=== PATIENT | male | born 1960 | race Caucasian/White ===

== ENCOUNTER 2018-05-03 13:18 | Emergency (ER) | payer MEDICAID ==
[~2018-05-03] VITALS: Ht 172.7 cm; Wt 88.3 kg
[~2018-05-03 13:18] MED LIST: NAPR-56 PO; NO HOME MEDS; PENI250T2 PO
[2018-05-03 13:29] VITALS: BP 156/91
[2018-05-03] MEDS ORDERED: ONDA4TAB9 PO (14:00)
[2018-05-03] MEDS ORDERED: HYDR-4353 PO (14:00)
[2018-05-03] MEDS ORDERED: METR500T PO (14:00)
[2018-05-03] MEDS ORDERED: acetaminophen 325mg tablet PO ONE (14:10)
== END 2018-05-03 14:15 | disposition home or self-care (01) ==
LOC: ER 13:19
DX: K04.7 Periapical abscess without sinus (principal); K04.1 Necrosis of pulp; F12.90 Cannabis use, unspecified, uncomplicated; G89.29 Other chronic pain; Z79.899 Other long term (current) drug therapy
CPT/HCPCS: 99283

== ENCOUNTER 2020-05-18 15:42 | Emergency (ER) | payer MEDICAID ==
[~2020-05-18] VITALS: Ht 172.7 cm; Wt 84.1 kg
[~2020-05-18 15:42] MED LIST changes: -NAPR-56 PO; -PENI250T2 PO
[2020-05-18 16:11] LABS: BASOPHILS # (AUTO) 0.1 X10'3 (0-0.2); BASOPHILS % (AUTO) 0.7 % (0-1); EOSINOPHILS # (AUTO) 0.3 X10'3 (0-0.9); EOSINOPHILS % (AUTO) 2.8 % (0-6); HEMATOCRIT 42.9 % (42.0-52.0); HEMOGLOBIN 14.7 g/dl (14.0-17.9); LYMPHOCYTES # (AUTO) 2.6 X10'3 (1.1-4.8); LYMPHOCYTES % (AUTO) 25.1 % (21-51); MEAN CORPUSCULAR HEMOGLOBIN 31.2 PG (27.0-31.0); MEAN CORPUSCULAR HGB CONC 34.3 g/dL (33.0-36.5); MEAN CORPUSCULAR VOLUME 91.1 FL (78-98); MEAN PLATELET VOLUME 5.8 FL (7.4-10.4); MONOCYTES # (AUTO) 0.5 X10'3 (0-0.9); MONOCYTES % (AUTO) 4.9 % (2-12); NEUTROPHILS # (AUTO) 6.8 X10'3 (1.8-7.7); NEUTROPHILS % (AUTO) 66.5 % (42-75); PLATELET COUNT 441 X10'3 (140-440); RED BLOOD COUNT 4.71 X10'6 (4.70-6.10); WHITE BLOOD COUNT 10.2 X10'3 (4.5-11.0)
[2020-05-18 16:25] LABS: ALANINE AMINOTRANSFERASE 46 U/L (12-78); ALBUMIN 3.3 G/DL (3.4-5.0); ALBUMIN/GLOBULIN RATIO 0.8 (1.1-1.5); ALKALINE PHOSPHATASE 111 IU/L (46-116); ANION GAP 9 (8-16); ASPARTATE AMINO TRANSFERASE 23 U/L (10-37); BILIRUBIN,TOTAL 0.4 MG/DL (0.1-1.0); BLOOD UREA NITROGEN 14 MG/DL (7-18); BUN/CREATININE RATIO 14.1 (5.4-32.0); CALCIUM 8.5 MG/DL (8.5-10.1); CHLORIDE 100 MMOL/L (99-107); CREATININE 0.99 MG/DL (0.60-1.10); GLUCOSE 134 MG/DL (70-104); POTASSIUM 3.8 MMOL/L (3.5-5.1); SODIUM 138 MMOL/L (135-145); TOTAL CARBON DIOXIDE 28.6 MMOL/L (24-32); TOTAL PROTEIN 7.5 G/DL (6.4-8.2); eGFR 77 ML/MIN
[2020-05-18] MEDS ORDERED: meclizine 12.5mg tablet PO ONE (16:30)
--- NOTE | 2020-05-18 16:47 | NUR ---
Patient ambulates 100 feet without any assistance with a steady gait. He denies dizziness at this time. Lavell Donis updated.
[2020-05-18 17:03] VITALS: BP 112/70
== END 2020-05-18 17:04 | disposition home or self-care (01) ==
LOC: ER 15:43
DX: R42 Dizziness and giddiness (principal); G89.29 Other chronic pain; F12.10 Cannabis abuse, uncomplicated
CPT/HCPCS: 36415; 71045; 80053; 84484; 85025; 93005; 99285; J8597

== ENCOUNTER 2021-09-22 22:26 | Emergency (ER) | payer MEDICAID ==
[~2021-09-22] VITALS: Ht 167.6 cm; Wt 84.1 kg
--- NOTE | 2021-09-22 22:53 | NUR ---
AWARE OF PT'S SOB. PT ROOMED IN BED 1. ORDERS PLACED. EKG COMPLETED.
[2021-09-22 23:14] LABS: MEAN PLATELET VOLUME 6.1 FL (7.4-10.4); WHITE BLOOD COUNT 6.1 X10'3 (4.5-11.0)
[2021-09-22 23:16] LABS: BASOPHILS # (AUTO) 0.1 X10'3 (0-0.2); EOSINOPHILS # (AUTO) 0.1 X10'3 (0-0.9); EOSINOPHILS % (AUTO) 2.3 % (0-6); HEMOGLOBIN 14.8 g/dl (14.0-17.9); LYMPHOCYTES # (AUTO) 2.9 X10'3 (1.1-4.8); LYMPHOCYTES % (AUTO) 46.7 % (21-51); MEAN CORPUSCULAR HEMOGLOBIN 32.8 PG (27.0-31.0); MEAN CORPUSCULAR HGB CONC 34.4 g/dL (33.0-36.5); MEAN CORPUSCULAR VOLUME 95.3 FL (78-98); MONOCYTES # (AUTO) 0.4 X10'3 (0-0.9); MONOCYTES % (AUTO) 6.1 % (2-12); NEUTROPHILS # (AUTO) 2.7 X10'3 (1.8-7.7); NEUTROPHILS % (AUTO) 43.9 % (42-75); PLATELET COUNT 258 X10'3 (140-440); RED BLOOD COUNT 4.51 X10'6 (4.70-6.10); RED CELL DISTRIBUTION WIDTH 13.9 % (11.5-14.5)
[2021-09-22 23:25] LABS: ALANINE AMINOTRANSFERASE 41 U/L (12-78); ALBUMIN 3.8 G/DL (3.4-5.0); ALBUMIN/GLOBULIN RATIO 1.1 (1.1-1.5); ALKALINE PHOSPHATASE 97 IU/L (46-116); ANION GAP 12 (8-16); ASPARTATE AMINO TRANSFERASE 31 U/L (10-37); BILIRUBIN,TOTAL 0.4 MG/DL (0.1-1.0); BLOOD UREA NITROGEN 17 MG/DL (7-18); BUN/CREATININE RATIO 19.1 (5.4-32.0); CALCIUM 8.5 MG/DL (8.5-10.1); CHLORIDE 105 MMOL/L (99-107); CREATININE 0.89 MG/DL (0.60-1.10); GLUCOSE 111 MG/DL (70-104); POTASSIUM 3.7 MMOL/L (3.5-5.1); SODIUM 140 MMOL/L (135-145); TOTAL CARBON DIOXIDE 23.5 MMOL/L (24-32); TOTAL PROTEIN 7.2 G/DL (6.4-8.2); eGFR 87 ML/MIN
[2021-09-23 01:27] LABS: D-DIMER 0.61 MG/L FEU (0-0.50)
--- NOTE | 2021-09-23 01:40 | NUR ---
Pt pink, no acute/resp distress. PIV site c/d/i s complication or adverse rxn. Bed in lowest position, wheels locked, call cook in reach. Will continue to monitor pt for acute changes and needs.
[2021-09-23] MEDS ORDERED: iohexol 350MG/ML 100ml bottle IV ONE (02:03)
--- NOTE | 2021-09-23 02:13 | NUR ---
Pt to radiology. Cruger, no acute/resp distress. PIV site c/d/i s complication.
[2021-09-23 05:17] LABS: ABG OXYGEN SATURATION 95.7 % (94-97); ABG PCO2 (T) 30.6 mmHg (35.0-48.0); ALLEN'S TEST POSITIVE; FCOHb 0.5 % (0.0-3.9); FMetHb 0.2 % (0.0-1.5); PATIENT TEMPERATURE 36.4
[2021-09-23 05:35] VITALS: BP 149/83
== END 2021-09-23 05:36 | disposition home or self-care (01) ==
LOC: ER 22:27
DX: R06.02 Shortness of breath (principal); Z20.822 Contact with and (suspected) exposure to COVID-19; G89.29 Other chronic pain; F12.90 Cannabis use, unspecified, uncomplicated; Z72.89 Other problems related to lifestyle; Z98.890 Other specified postprocedural states
CPT/HCPCS: 36415; 36600; 71045; 71275; 80053; 82803; 83605; 83880; 84484; 85018; 85025; 85379; 87040; 87635; 93005; 99285; C9803; Q9967

== ENCOUNTER 2021-10-22 22:02 | Emergency (ER) | payer MEDICAID ==
[~2021-10-22] VITALS: Ht 167.6 cm; Wt 86.4 kg
[2021-10-22 22:14] VITALS: BP 131/91
== END 2021-10-23 01:19 | disposition left against medical advice (07) ==
LOC: ER 22:03
DX: T25.221A Burn of second degree of right foot, initial encounter (principal)
CPT/HCPCS: 73610; 73630; 99284

== ENCOUNTER 2022-11-29 05:15 | Emergency (ER) | payer MEDICAID ==
[~2022-11-29] VITALS: Ht 167.6 cm; Wt 86.4 kg
[2022-11-29 05:21] VITALS: BP 142/89
[2022-11-29] MEDS ORDERED: chlordiazePOXIDE 25mg capsule PO ONE (06:30)
[2022-11-29 07:53] LABS: BASOPHILS % (AUTO) 0.6 % (0-1); EOSINOPHILS % (AUTO) 0.4 % (0-6); HEMATOCRIT 41.9 % (42.0-52.0); HEMOGLOBIN 14.4 g/dl (14.0-17.9); LYMPHOCYTES # (AUTO) 0.8 X10'3 (1.1-4.8); LYMPHOCYTES % (AUTO) 15.2 % (21-51); MEAN CORPUSCULAR HEMOGLOBIN 34.8 PG (27.0-31.0); MEAN CORPUSCULAR HGB CONC 34.5 g/dL (33.0-36.5); MEAN CORPUSCULAR VOLUME 100.8 FL (78-98); MEAN PLATELET VOLUME 6.5 FL (7.4-10.4); MONOCYTES # (AUTO) 0.5 X10'3 (0-0.9); MONOCYTES % (AUTO) 9.6 % (2-12); NEUTROPHILS # (AUTO) 3.8 X10'3 (1.8-7.7); NEUTROPHILS % (AUTO) 74.2 % (42-75); PLATELET COUNT 156 X10'3 (140-440); RED BLOOD COUNT 4.16 X10'6 (4.70-6.10); WHITE BLOOD COUNT 5.1 X10'3 (4.5-11.0)
[2022-11-29 08:04] LABS: ALANINE AMINOTRANSFERASE 76 U/L (12-78); ALBUMIN 3.9 G/DL (3.4-5.0); ALBUMIN/GLOBULIN RATIO 1.2 (1.1-1.5); ALKALINE PHOSPHATASE 69 IU/L (46-116); ANION GAP 14 (8-16); ASPARTATE AMINO TRANSFERASE 135 U/L (10-37); BILIRUBIN,TOTAL 1.4 MG/DL (0.1-1.0); BLOOD UREA NITROGEN 12 MG/DL (7-18); BUN/CREATININE RATIO 15.8 (10.0-20.0); CALCIUM 9.4 MG/DL (8.5-10.1); CHLORIDE 104 MMOL/L (99-107); CREATININE 0.76 MG/DL (0.60-1.10); ETHANOL < 0.010 GM/DL (0.0-0.010); GLUCOSE 124 MG/DL (70-104); POTASSIUM 3.9 MMOL/L (3.5-5.1); SODIUM 143 MMOL/L (135-145); TOTAL CARBON DIOXIDE 25.4 MMOL/L (24-32); TOTAL PROTEIN 7.1 G/DL (6.4-8.2); eGFR > 90 ML/MIN
== END 2022-11-29 08:59 | disposition home or self-care (01) ==
LOC: ER 05:19
DX: F10.930 Alcohol use, unspecified with withdrawal, uncomplicated (principal); W19.XXXA Unspecified fall, initial encounter; Y93.9 Activity, unspecified; Y92.89 Other specified places as the place of occurrence of the external cause; Y99.8 Other external cause status; Y90.9 Presence of alcohol in blood, level not specified
CPT/HCPCS: 36415; 70450; 80053; 80320; 84484; 85025; 99284

== ENCOUNTER 2023-08-15 15:17 | Emergency (ER) | payer MEDICAID ==
[~2023-08-15] VITALS: Ht 170.2 cm; Wt 90.8 kg
[2023-08-15 15:27] VITALS: TEMP 97.8
[2023-08-15 16:56] LABS: BILIRUBIN,URINE SMALL (Neg); CLARITY,URINE CLEAR (Clear); COLOR,URINE YELLOW (Yellow); GLUCOSE, URINE NEGATIVE (Neg); KETONES,URINE 15 mg/dl (Neg); LEUKOCYTE ESTERASE ,URINE NEGATIVE (Neg); NITRITES, URINE NEGATIVE (Neg); OCCULT BLOOD,URINE TRACE-LYSED (Neg); PROTEIN,URINE NEGATIVE (Neg)
[2023-08-15 17:06] LABS: UA COLLECTION TYPE NON-SPECIFIED
[2023-08-15 17:07] LABS: HYALINE CASTS 0-3 /LPF (NEGATIVE); MUCUS STRANDS FEW /LPF (Neg); SQUAMOUS EPITHELIAL CELL,UR FEW /LPF (FEW)
[2023-08-15 17:08] LABS: BACTERIA,URINE 1+ /HPF (Neg); RBC,URINE 0-2 /HPF (0-2); WBC,URINE 0-4 /HPF (0-4)
[2023-08-15 17:14] LABS: BASOPHILS # (AUTO) 0.1 X10'3 (0-0.2); BASOPHILS % (AUTO) 1.4 % (0-1); EOSINOPHILS # (AUTO) 0.1 X10'3 (0-0.9); EOSINOPHILS % (AUTO) 0.9 % (0-6); HEMOGLOBIN 14.4 g/dl (14.0-17.9); LYMPHOCYTES # (AUTO) 1.6 X10'3 (1.1-4.8); LYMPHOCYTES % (AUTO) 20.9 % (21-51); MEAN CORPUSCULAR HEMOGLOBIN 36.4 PG (27.0-31.0); MEAN CORPUSCULAR HGB CONC 35.1 g/dL (33.0-36.5); MEAN CORPUSCULAR VOLUME 103.9 FL (78-98); MEAN PLATELET VOLUME 7.1 FL (7.4-10.4); MONOCYTES # (AUTO) 0.6 X10'3 (0-0.9); MONOCYTES % (AUTO) 8.3 % (2-12); NEUTROPHILS # (AUTO) 5.3 X10'3 (1.8-7.7); NEUTROPHILS % (AUTO) 68.5 % (42-75); PLATELET COUNT 159 X10'3 (140-440); RED BLOOD COUNT 3.95 X10'6 (4.70-6.10); RED CELL DISTRIBUTION WIDTH 15.6 % (11.5-14.5); WHITE BLOOD COUNT 7.8 X10'3 (4.5-11.0)
[2023-08-15 17:18] LABS: ALBUMIN 3.7 G/DL (3.4-5.0); ANION GAP 16 (8-16); BLOOD UREA NITROGEN 8 MG/DL (7-18); BUN/CREATININE RATIO 9.2 (10.0-20.0); CHLORIDE 99 MMOL/L (99-107); CREATININE 0.87 MG/DL (0.60-1.10); GLUCOSE 122 MG/DL (70-104); LIPASE 105 U/L (16-77); POTASSIUM 3.9 MMOL/L (3.5-5.1); SODIUM 139 MMOL/L (135-145); TOTAL CARBON DIOXIDE 24.3 MMOL/L (24-32); eCRCL 80 ML/MIN; eGFR 88 ML/MIN
[2023-08-15 17:57] LABS: ALANINE AMINOTRANSFERASE 119 U/L (12-78); ALBUMIN/GLOBULIN RATIO 0.8 (1.1-1.5); ALKALINE PHOSPHATASE 151 IU/L (46-116); ASPARTATE AMINO TRANSFERASE 243 U/L (10-37); BILIRUBIN,DIRECT 1.5 MG/DL (0-0.3); BILIRUBIN,TOTAL 2.5 MG/DL (0.1-1.0); TOTAL PROTEIN 8.1 G/DL (6.4-8.2)
[2023-08-15 18:19] VITALS: BP 113/87; PULSE 104; RESP 20; O2SAT 96
== END 2023-08-15 19:07 | disposition home or self-care (01) ==
LOC: ER 15:17
DX: K76.0 Fatty (change of) liver, not elsewhere classified (principal); R74.8 Abnormal levels of other serum enzymes; K70.9 Alcoholic liver disease, unspecified; G89.29 Other chronic pain; Z79.899 Other long term (current) drug therapy
CPT/HCPCS: 36415; 74176; 80048; 80076; 81001; 82140; 83690; 85025; 99284

== ENCOUNTER 2023-09-22 17:46 | Emergency (ER) | payer MEDICAID ==
[~2023-09-22] VITALS: Ht 172.7 cm; Wt 92.0 kg
[2023-09-22 17:48] VITALS: TEMP 98
[2023-09-22 20:19] LABS: BASOPHILS % (AUTO) 0.4 % (0-1); EOSINOPHILS # (AUTO) 0.3 X10'3 (0-0.9); EOSINOPHILS % (AUTO) 2.6 % (0-6); HEMATOCRIT 42.3 % (42.0-52.0); HEMOGLOBIN 14.7 g/dl (14.0-17.9); LYMPHOCYTES # (AUTO) 2.7 X10'3 (1.1-4.8); LYMPHOCYTES % (AUTO) 27.6 % (21-51); MEAN CORPUSCULAR HEMOGLOBIN 36.5 PG (27.0-31.0); MEAN CORPUSCULAR HGB CONC 34.7 g/dL (33.0-36.5); MEAN CORPUSCULAR VOLUME 105.3 FL (78-98); MEAN PLATELET VOLUME 6.7 FL (7.4-10.4); MONOCYTES # (AUTO) 0.7 X10'3 (0-0.9); MONOCYTES % (AUTO) 6.8 % (2-12); NEUTROPHILS % (AUTO) 62.6 % (42-75); PLATELET COUNT 261 X10'3 (140-440); RED BLOOD COUNT 4.01 X10'6 (4.70-6.10); RED CELL DISTRIBUTION WIDTH 13.9 % (11.5-14.5); WHITE BLOOD COUNT 9.6 X10'3 (4.5-11.0)
[2023-09-22 20:26] LABS: ALANINE AMINOTRANSFERASE 61 U/L (12-78); ALBUMIN 3.3 G/DL (3.4-5.0); ALBUMIN/GLOBULIN RATIO 0.8 (1.1-1.5); ALKALINE PHOSPHATASE 142 IU/L (46-116); ANION GAP 11 (8-16); ASPARTATE AMINO TRANSFERASE 89 U/L (10-37); BILIRUBIN,TOTAL 0.6 MG/DL (0.1-1.0); BLOOD UREA NITROGEN 11 MG/DL (7-18); BUN/CREATININE RATIO 12.2 (10.0-20.0); CALCIUM 9.3 MG/DL (8.5-10.1); CHLORIDE 102 MMOL/L (99-107); GLUCOSE 163 MG/DL (70-104); POTASSIUM 3.8 MMOL/L (3.5-5.1); SODIUM 139 MMOL/L (135-145); TOTAL CARBON DIOXIDE 25.9 MMOL/L (24-32); TOTAL PROTEIN 7.6 G/DL (6.4-8.2); eCRCL 80 ML/MIN; eGFR 85 ML/MIN
[2023-09-22 20:29] LABS: ETHANOL 179 MG/DL (<10); MAGNESIUM 1.7 MG/DL (1.5-2.4)
[2023-09-22] MEDS: normal saline 1000ml 1,000 ML IV ONE (20:35)
[2023-09-22] MEDS: thiamine 100mg/ml 2ml inj. IV ONE (20:35)
[2023-09-22] MEDS: LORazepam 1 MG tablet PO ONE ×2 (20:35→22:04)
[2023-09-22] MEDS: folic acid 1mg/0.2ml inj IV ONE (20:40)
[2023-09-22] MEDS ORDERED: LORA-269 PO (21:43)
[2023-09-22 22:13] VITALS: BP 139/78; PULSE 89; RESP 16; O2SAT 99
== END 2023-09-22 22:22 | disposition home or self-care (01) ==
LOC: ER 17:47
DX: F10.20 Alcohol dependence, uncomplicated (principal); F12.90 Cannabis use, unspecified, uncomplicated; Z79.899 Other long term (current) drug therapy; Y90.9 Presence of alcohol in blood, level not specified
CPT/HCPCS: 36415; 80053; 80320; 83735; 84484; 85025; 93005; 96361; 96374; 96375; 99285; J3411; J3490; J7030

== ENCOUNTER 2023-10-16 19:57 | Emergency (ER) | payer MEDICAID ==
[~2023-10-16] VITALS: Ht 172.7 cm; Wt 91.0 kg
[~2023-10-16 19:57] MED LIST changes: +LORA-269 PO
[2023-10-16 19:58] VITALS: TEMP 98.2
[2023-10-16 21:13] VITALS: RESP 16
[2023-10-16] MEDS: HYDROcodone/acetaminophen 5mg/325mg tablet PO ONE (21:13)
[2023-10-16 21:23] VITALS: BP 132/80; PULSE 80; O2SAT 96
[2023-10-16] MEDS ORDERED: HYDR-3965 PO (21:31)
== END 2023-10-16 21:24 | disposition home or self-care (01) ==
LOC: ER 19:57
DX: S29.8XXA Other specified injuries of thorax, initial encounter (principal); F12.90 Cannabis use, unspecified, uncomplicated; F10.90 Alcohol use, unspecified, uncomplicated; Z79.899 Other long term (current) drug therapy; Z98.890 Other specified postprocedural states; V98.8XXA Other specified transport accidents, initial encounter; Y93.89 Activity, other specified; Y92.89 Other specified places as the place of occurrence of the external cause; Y99.8 Other external cause status
CPT/HCPCS: 71101; 99283

== ENCOUNTER 2023-12-02 09:54 | Emergency (ER) | payer MEDICAID ==
[~2023-12-02] VITALS: Ht 167.6 cm; Wt 88.6 kg
[2023-12-02 09:59] VITALS: TEMP 97.4
[2023-12-02] MEDS ORDERED: pantoprazole 40mg IV 80 MG in normal saline 100ml IV soln 100 ML IV ONE (10:35)
[2023-12-02 10:52] LABS: ALBUMIN 3.9 G/DL (3.4-5.0); ANION GAP 24 (8-16); BLOOD UREA NITROGEN 16 MG/DL (7-18); BUN/CREATININE RATIO 16.3 (10.0-20.0); CALCIUM 9.3 MG/DL (8.5-10.1); CHLORIDE 96 MMOL/L (99-107); CREATININE 0.98 MG/DL (0.60-1.10); ETHANOL 208 MG/DL (<10); GLUCOSE 144 MG/DL (70-104); LIPASE 78 U/L (16-77); POTASSIUM 4.1 MMOL/L (3.5-5.1); SODIUM 137 MMOL/L (135-145); TOTAL CARBON DIOXIDE 16.8 MMOL/L (24-32); eCRCL 69 ML/MIN; eGFR 77 ML/MIN
[2023-12-02 10:53] LABS: BASOPHILS # (AUTO) 0.1 X10'3 (0-0.2); BASOPHILS % (AUTO) 0.8 % (0-1); EOSINOPHILS % (AUTO) 0.1 % (0-6); HEMATOCRIT 43.6 % (42.0-52.0); HEMOGLOBIN 14.8 g/dl (14.0-17.9); LYMPHOCYTES # (AUTO) 1.6 X10'3 (1.1-4.8); LYMPHOCYTES % (AUTO) 21.3 % (21-51); MEAN CORPUSCULAR HEMOGLOBIN 35.4 PG (27.0-31.0); MEAN CORPUSCULAR HGB CONC 33.9 g/dL (33.0-36.5); MEAN CORPUSCULAR VOLUME 104.5 FL (78-98); MONOCYTES # (AUTO) 0.7 X10'3 (0-0.9); MONOCYTES % (AUTO) 9.7 % (2-12); NEUTROPHILS # (AUTO) 5.1 X10'3 (1.8-7.7); NEUTROPHILS % (AUTO) 68.1 % (42-75); PLATELET COUNT 142 X10'3 (140-440); RED BLOOD COUNT 4.18 X10'6 (4.70-6.10); RED CELL DISTRIBUTION WIDTH 15.4 % (11.5-14.5); WHITE BLOOD COUNT 7.5 X10'3 (4.5-11.0)
[2023-12-02 10:54] LABS: INR 1.1 INR; PROTHROMBIN TIME 11.7 SECONDS (9.0-12.0)
[2023-12-02] MEDS: normal saline 1000ML IV soln IVB ONE (11:06)
[2023-12-02] MEDS: pantoprazole 40 MG vial IV ONE (11:13)
[2023-12-02 13:10] LABS: OCCULT BLOOD STOOL NEGATIVE (Neg)
[2023-12-02] MEDS ORDERED: PANT-47 PO (14:11)
[2023-12-02 14:16] LABS: BASOPHILS # (AUTO) 0.1 X10'3 (0-0.2); BASOPHILS % (AUTO) 0.7 % (0-1); EOSINOPHILS % (AUTO) 0.2 % (0-6); HEMATOCRIT 41.5 % (42.0-52.0); HEMOGLOBIN 14.3 g/dl (14.0-17.9); LYMPHOCYTES # (AUTO) 1.8 X10'3 (1.1-4.8); LYMPHOCYTES % (AUTO) 24.6 % (21-51); MEAN CORPUSCULAR HEMOGLOBIN 35.8 PG (27.0-31.0); MEAN CORPUSCULAR HGB CONC 34.5 g/dL (33.0-36.5); MEAN CORPUSCULAR VOLUME 103.8 FL (78-98); MEAN PLATELET VOLUME 6.8 FL (7.4-10.4); MONOCYTES # (AUTO) 0.7 X10'3 (0-0.9); MONOCYTES % (AUTO) 9.7 % (2-12); NEUTROPHILS # (AUTO) 4.7 X10'3 (1.8-7.7); NEUTROPHILS % (AUTO) 64.8 % (42-75); PLATELET COUNT 136 X10'3 (140-440); RED CELL DISTRIBUTION WIDTH 15.3 % (11.5-14.5); WHITE BLOOD COUNT 7.2 X10'3 (4.5-11.0)
[2023-12-02 14:44] LABS: URINE AMPHETAMINE SCREEN NEGATIVE (Neg); URINE BARBITUATE SCREEN NEGATIVE (Neg); URINE BENZODIAZEPINES SCREEN NEGATIVE (Neg); URINE CANNABINOID SCREEN POSITIVE (Neg); URINE COCAINE SCREEN NEGATIVE (Neg); URINE METHADONE SCREEN NEGATIVE (Neg); URINE OPIATE SCREEN NEGATIVE (Neg); URINE PHENCYCLIDINE SCREEN NEGATIVE (Neg)
[2023-12-02 15:25] VITALS: BP 143/84; PULSE 79; RESP 14; O2SAT 97
== END 2023-12-02 15:27 | disposition home or self-care (01) ==
LOC: ER 09:54
DX: K92.0 Hematemesis (principal); F10.129 Alcohol abuse with intoxication, unspecified; K59.00 Constipation, unspecified; G89.29 Other chronic pain; Z79.899 Other long term (current) drug therapy
CPT/HCPCS: 36415; 71045; 80048; 80305; 80320; 82272; 83690; 85025; 85610; 86885; 86900; 86901; 93005; 96365; 99285; C9113; J7030

== ENCOUNTER 2024-01-19 15:17 | Emergency (ER) | payer MEDICAID ==
[~2024-01-19] VITALS: Ht 167.6 cm; Wt 88.6 kg
[~2024-01-19 15:17] MED LIST changes: +PANT-47 PO
[2024-01-19] MEDS: ondansetron 4mg rapidly disintigrating tab PO ONE (16:13)
[2024-01-19] MEDS: HYDROcodone/acetaminophen 10/325mg tab PO ONE (16:13)
[2024-01-19] MEDS ORDERED: HYDR-3964 PO (17:52)
[2024-01-19 17:59] VITALS: BP 125/80; PULSE 86; RESP 16; TEMP 98.2; O2SAT 96
== END 2024-01-19 18:01 | disposition home or self-care (01) ==
LOC: ER 15:18
DX: M25.552 Pain in left hip (principal); G89.29 Other chronic pain; F10.90 Alcohol use, unspecified, uncomplicated; Z79.899 Other long term (current) drug therapy; Z98.890 Other specified postprocedural states
CPT/HCPCS: 73522; 73700; 99284